=== PATIENT | male | born 2000 | race Caucasian/White ===

== ENCOUNTER 2022-12-10 15:13 | Emergency (ER) | payer OTHER ==
[~2022-12-10] VITALS: Ht 175.3 cm; Wt 91.0 kg
[2022-12-10 15:44] LABS: COVID AG,FIA SOURCE NASAL SWAB
[2022-12-10 16:38] LABS: INFLUENZA TYPE A NEGATIVE FOR TYPE A (NEGATIVE); INFLUENZA TYPE B NEGATIVE FOR TYPE B (NEGATIVE)
[2022-12-10 16:44] VITALS: BP 123/81; PULSE 96; RESP 16; TEMP 99.1
== END 2022-12-10 17:20 | disposition home or self-care (01) ==
LOC: EMS 15:16
DX: F41.9 Anxiety disorder, unspecified (principal); Z20.822 Contact with and (suspected) exposure to COVID-19
CPT/HCPCS: 87804; 99283